=== PATIENT | female | born 1965 | race Caucasian/White ===

== ENCOUNTER → 2018-01-18 11:44 | Outpatient (CLI) | payer OTHER, SELFPAY ==
--- NOTE | 2018-01-18 | DI.MG.S_ITS ---
BILATERAL DIGITAL SCREENING MAMMOGRAM 3D/2D WITH CAD: 01/18/2018 CLINICAL: Routine screening. Family history of breast cancer. Comparison is made to exams dated: 12/28/2016 mammogram, 12/17/2014 mammogram, and 12/20/2015 mammogram - [facility]. The tissue of both breasts is extremely dense, which lowers the sensitivity of mammography. Current study was also evaluated with a Computer Aided Detection (CAD) system. No significant masses, calcifications, or other findings are seen in either breast. There has been no significant interval change. IMPRESSION: NEGATIVE There is no mammographic evidence of malignancy. A 1 year screening mammogram is recommended. This exam was interpreted at Station ID: [id number]. NOTE: For mammograms, a report in lay terms will be sent to the patient. Approximately 15% of breast malignancies will not be visualized mammographically. In the management of a palpable breast mass, a negative mammogram must not discourage biopsy of a clinically suspicious lesion. Electronically Signed By: Amira tucker/bao:01/18/2018 14:14:38 letter sent: Normal Exam ACR BI-RADS Category 1: Negative 3341F
== END ==
PROVIDERS: Family Provider Family Medicine; PCP Family Medicine; Visit Provider Family Medicine
DX: Z12.31 Encounter for screening mammogram for malignant neoplasm of breast (principal); Z80.3 Family history of malignant neoplasm of breast
CPT/HCPCS: 77063; 77067

== ENCOUNTER → 2018-03-18 08:36 | Outpatient (CLI) | payer OTHER, SELFPAY ==
[2018-03-18 09:23] LABS: Add Manual Diff / Slide Review NO; Basophils Percent Auto 0.5 % (0-2); Eosinophils Percent Auto 0.4 % (2-4); Hematocrit 40.1 % (36-46); Hemoglobin 13.5 g/dL (12.0-16.0); Lymphocytes Percent Auto 13.9 % (25-40); Mean Corpuscular HGB Conc 33.7 % (30-36); Mean Corpuscular Hemoglobin 32.8 PG (26-34); Mean Corpuscular Volume 97.4 fL (80-100); Monocytes Percent Auto 5.9 % (3-14); Neutrophils Absolute Auto 6300 /uL (3000-5900); Neutrophils Percent Auto 79.3 % (50-75); Platelet Count 235 X10^3/uL (150-400); Red Blood Cell Count 4.12 X10^6/uL (4.0-5.2); Red Cell Distribution Width 13.2 % (11.6-14.8); White Blood Cell Count 7.9 X10^3/uL (4.5-11.0)
[2018-03-18 09:35] LABS: Alanine Aminotransferase 26 IU/L (9-52); Albumin 4.5 g/dL (3.5-5.0); Albumin Globulin Ratio 1.7 (1.0-2.8); Alkaline Phosphatase 48 U/L (38-126); Aspartate Aminotransferase 21 IU/L (14-36); BUN Creatinine Ratio 26.7 (6-22); Bilirubin Total 0.7 mg/dL (0.2-1.3); Blood Urea Nitrogen 24 mg/dL (7-17); Calcium 9.4 mg/dL (8.4-10.2); Carbon Dioxide 28 mmol/L (22-32); Chloride 104 mmol/L (98-107); Cholesterol 204 mg/dL (140-199); Estimated Glomerular Filt Rate > 60.0 mL/min (>60); Globulin 2.7 g/dL (1.7-4.1); Glucose 101 mg/dL (70-100); HDL Cholesterol 66 mg/dL (40-60); HEMOLYSIS < 15 (0-50); LDL Cholesterol Calculated 128 mg/dL (<100); Potassium 4.8 mmol/L (3.4-5.1); Sodium 142 mmol/L (137-145); Total Protein 7.2 g/dL (6.3-8.2); Triglycerides 51 mg/dL (35-150)
[2018-03-18 09:51] LABS: Follicle Stimulating Hormone 5.07 mIU/mL
[2018-03-18 10:58] LABS: Thyroid Stimulating Hormone 2.08 uIU/mL (0.47-4.68)
== END ==
PROVIDERS: Specialist; PCP Family Medicine; Visit Provider Family Medicine
DX: N95.1 Menopausal and female climacteric states (principal); I10 Essential (primary) hypertension
CPT/HCPCS: 36415; 80053; 80061; 83001; 84443; 85025

== ENCOUNTER → 2018-04-12 11:45 | Outpatient (CLI) | payer OTHER, SELFPAY | PROVIDERS: Family Provider Family Medicine; PCP Family Medicine | DX: Z23 Encounter for immunization (principal) | CPT/HCPCS: 90471; 90686 ==

== ENCOUNTER → 2019-02-07 15:15 | Outpatient (CLI) | payer OTHER, SELFPAY ==
--- NOTE | 2019-02-07 | DI.MG.S_ITS ---
BILATERAL DIGITAL SCREENING MAMMOGRAM 3D/2D WITH CAD: 02/07/2019 CLINICAL: Routine screening. Family history of breast cancer. Comparison is made to exams dated: 01/18/2018 mammogram, 12/28/2016 mammogram, and 12/20/2015 mammogram - [facility]. The tissue of both breasts is extremely dense, which lowers the sensitivity of mammography. Current study was also evaluated with a Computer Aided Detection (CAD) system. No significant masses, calcifications, or other findings are seen in either breast. There has been no significant interval change. IMPRESSION: NEGATIVE There is no mammographic evidence of malignancy. A 1 year screening mammogram is recommended. This exam was interpreted at Station ID: [id number]. NOTE: For mammograms, a report in lay terms will be sent to the patient. Approximately 15% of breast malignancies will not be visualized mammographically. In the management of a palpable breast mass, a negative mammogram must not discourage biopsy of a clinically suspicious lesion. Electronically Signed By: Karis faith/bao:02/08/2019 07:56:38 letter sent: Normal Exam ACR BI-RADS Category 1: Negative 3341F
== END ==
PROVIDERS: PCP Family Medicine; Visit Provider Family Medicine
DX: Z12.31 Encounter for screening mammogram for malignant neoplasm of breast (principal); Z80.3 Family history of malignant neoplasm of breast
CPT/HCPCS: 77063; 77067

== ENCOUNTER → 2019-03-16 08:08 | Outpatient (CLI) | payer OTHER, SELFPAY ==
[2019-03-16 09:23] LABS: Add Manual Diff / Slide Review NO; Basophils Absolute Auto 0 /uL (0-100); Basophils Percent Auto 0.9 % (0-2); Eosinophils Absolute Auto 100 /uL (0-450); Eosinophils Percent Auto 1.5 % (2-4); Hematocrit 38.3 % (36-46); Hemoglobin 13.2 g/dL (12.0-16.0); Lymphocytes Absolute Auto 1200 /uL (1100-4500); Lymphocytes Percent Auto 24.4 % (25-40); Mean Corpuscular HGB Conc 34.4 % (30-36); Mean Corpuscular Hemoglobin 33.4 PG (26-34); Mean Corpuscular Volume 97.1 fL (80-100); Monocytes Absolute Auto 300 /uL (0-900); Monocytes Percent Auto 6.6 % (3-14); Neutrophils Absolute Auto 3300 /uL (1500-7000); Neutrophils Percent Auto 66.6 % (50-75); Platelet Count 225 X10^3/uL (150-400); Red Blood Cell Count 3.95 X10^6/uL (4.0-5.2); White Blood Cell Count 4.9 X10^3/uL (4.5-11.0)
[2019-03-16 09:53] LABS: Alanine Aminotransferase 26 IU/L (9-52); Albumin 4.2 g/dL (3.5-5.0); Albumin Globulin Ratio 1.6 (1.0-2.8); Alkaline Phosphatase 51 U/L (38-126); Aspartate Aminotransferase 31 IU/L (14-36); BUN Creatinine Ratio 22.5 (6-22); Bilirubin Total 0.4 mg/dL (0.2-1.3); Blood Urea Nitrogen 18 mg/dL (7-17); Calcium 9.3 mg/dL (8.4-10.2); Carbon Dioxide 28 mmol/L (22-32); Chloride 102 mmol/L (98-107); Cholesterol 188 mg/dL (140-199); Estimated Glomerular Filt Rate > 60.0 mL/min (>60); Globulin 2.7 g/dL (1.7-4.1); Glucose 104 mg/dL (70-100); HDL Cholesterol 64 mg/dL (40-60); HEMOLYSIS < 15 (0-50); LDL Cholesterol Calculated 117 mg/dL (<100); Potassium 4.9 mmol/L (3.4-5.1); Sodium 139 mmol/L (137-145); Total Protein 6.9 g/dL (6.3-8.2); Triglycerides 34 mg/dL (35-150)
[2019-03-16 10:16] LABS: TSH w/ Reflex to FT4 2.03 uIU/mL (0.47-4.68)
== END ==
PROVIDERS: PCP Family Medicine; Visit Provider Family Medicine
DX: I10 Essential (primary) hypertension (principal)
CPT/HCPCS: 36415; 80053; 80061; 82565; 84443; 84520; 85025

== ENCOUNTER → 2019-04-18 14:40 | Outpatient (CLI) | payer OTHER, SELFPAY | PROVIDERS: PCP Family Medicine | DX: Z23 Encounter for immunization (principal) | CPT/HCPCS: 90471; 90686 ==

== ENCOUNTER → 2020-02-05 09:37 | Outpatient (CLI) | payer OTHER, SELFPAY ==
--- NOTE | 2020-02-05 09:38 | DI.RAD.S_ITS ---
PROCEDURE: XR HAND LT MIN 3V INDICATIONS: 3rd digit ant finger calcified nodule at mcp joint TECHNIQUE: 3 views of the hand(s) acquired. COMPARISON: None. FINDINGS: Bones: No fractures or dislocations. Carpal bones are normally aligned. No suspicious bony lesions. Soft tissues: No suspicious soft tissue calcifications. IMPRESSION: The clinical history provided suggest possible prior outside imaging study but the current examination shows no abnormality. Please correlate [id number] targeted ultrasound may be warranted depending on the clinical status. Dictated by: Ky Schneider M.D. on 02/05/2020 at 10:29 Approved by: Ky Schneider M.D. on 02/05/2020 at 10:31
== END ==
PROVIDERS: PCP Family Medicine; Referring Provider Family Medicine; Visit Provider Family Medicine
DX: M79.645 Pain in left finger(s) (principal)
CPT/HCPCS: 73130

== ENCOUNTER → 2020-02-26 17:37 | Outpatient (CLI) | payer OTHER, SELFPAY ==
--- NOTE | 2020-02-26 | DI.MG.S_ITS ---
BILATERAL DIGITAL SCREENING MAMMOGRAM 3D/2D WITH CAD: 02/26/2020 CLINICAL: Routine screening. Family history of breast cancer. Comparison is made to exams dated: 02/07/2019 mammogram, 01/18/2018 mammogram, and 12/28/2016 mammogram - [facility]. The tissue of both breasts is extremely dense, which lowers the sensitivity of mammography. Current study was also evaluated with a Computer Aided Detection (CAD) system. No significant masses, calcifications, or other findings are seen in either breast. There has been no significant interval change. IMPRESSION: NEGATIVE There is no mammographic evidence of malignancy. A 1 year screening mammogram is recommended. This exam was interpreted at Station ID: [id number]. NOTE: For mammograms, a report in lay terms will be sent to the patient. Approximately 15% of breast malignancies will not be visualized mammographically. In the management of a palpable breast mass, a negative mammogram must not discourage biopsy of a clinically suspicious lesion. Electronically Signed By: Homar coffey/bao:02/27/2020 08:28:11 letter sent: Normal Exam ACR BI-RADS Category 1: Negative 3341F
== END ==
PROVIDERS: PCP Family Medicine; Referring Provider Family Medicine; Visit Provider Family Medicine
DX: Z12.31 Encounter for screening mammogram for malignant neoplasm of breast (principal); Z80.3 Family history of malignant neoplasm of breast
CPT/HCPCS: 77063; 77067

== ENCOUNTER 2020-03-03 15:16 | Emergency (ER) | payer OTHER, SELFPAY ==
[2020-03-03 15:20] VITALS: BP 172/81; PULSE 62; RESP 14; TEMP 36.7; O2SAT 98
--- NOTE | 2020-03-03 15:29 | DI.RAD.S_ITS ---
PROCEDURE: XR FINGER LT MIN 2V INDICATIONS: laceration to finger tip. ? bone involvement TECHNIQUE: AP hand, 2 views of the left 4th finger(s) acquired. COMPARISON: None. FINDINGS: Bones: No fractures or dislocations. No suspicious bony lesions. Soft tissues: No suspicious soft tissue calcifications. IMPRESSION: No bony abnormality or unexpected radiopaque foreign body after soft tissue laceration Dictated by: Amira Ahumada M.D. on 03/03/2020 at 14:59 Approved by: Amira Ahumada M.D. on 03/03/2020 at 14:59
[2020-03-03] MEDS: BACITRACIN OINT 0.9 GM PCKT 1 APPLIC TOP (16:19)
[2020-03-03] MEDS: LIDO 1%/SOD BICARB 8.4% (10ML) 10 ML SYRINGE INJ (16:19)
--- NOTE | 2020-03-03 16:21 | ED_ITS ---
HPI - Skin/Abscess/Foreign Bdy <GLORIA Gray - Last Filed: 03/03/20 16:49> General Chief complaint: Skin/Abscess/Foreign Body Stated complaint: left hand ring finger wound Time Seen by Provider: 03/03/20 15:32 Source: patient Mode of arrival: Ambulatory Limitations: no limitations History of Present Illness HPI narrative: This is a 54-year-old female who has updated tetanus immunization presents to ED with laceration on non dominant left hand ring finger on distal Phalege in ulnar aspect from a garden shear that happens 1 hour before coming into ED. patient reports intact sensation, mobility distally to the injury site. Related Data Home Medications Medication Instructions Recorded Confirmed cetirizine 10 mg tablet 10 mg PO DAILY 06/20/18 01/25/20 levonorgestrel 20 mcg/24 hours (5 INTRAUTERINE each 01/24/20 01/24/20 yrs) 52 mg intrauterine device Previous Rx's Medication Instructions Recorded telmisartan 40 mg tablet 40 mg PO QDAY #90 tab 02/08/20 Allergies Allergy/AdvReac Type Severity Reaction Status Date / Time No Known Drug Allergies Allergy Verified 03/03/20 15:28 Review of Systems <GLORIA Gray - Last Filed: 03/03/20 16:49> Review of Systems Narrative: General: Denies fever, chills, fatigue, malaise, sweats. Respiratory: Denies dyspnea, cough, wheezing, hemoptysis, sputum. Cardiovascular: Denies chest pain, palpitations, orthopnea, edema Musculoskeletal: Denies weakness, joint pain or bony pain. Skin: See HPI Patient History <GLORIA Gray - Last Filed: 03/03/20 16:49> Medical History Foot pain (Chronic ~2011) Hypertension (Chronic ~1992) Osteoarthritis of toe joint (Acute) Vaginal delivery (Resolved) Family History Father Age: 78 Hypertension Grandmother Heart disease Grandfather Heart disease Grandmother Monique Gehrig's disease Social History marital status: Smoking Status: Never smoker alcohol intake: current (1-3 A WEEK) substance use type: does not use Smoking Status: Never smoker Substance Use Type: does not use Exam <GLORIA Gray - Last Filed: 03/03/20 16:49> Narrative Exam Narrative: General appearance: well developed, well nourished, in no acute distress. Head: normocephalic, atraumatic, no scalp lesions, non-tender. ENT: Hearing grossly intact. Airway patent. Neck/Thyroid: neck supple, full range of motion, no visible masses or meningeal signs. No JVD, non-tender without lymphadenopathy. Skin: 1.5 cm laceration to distal finger on ulnar aspect of left ring finger. Heart: no clubbing, no cyanosis, no edema. Lungs: Breathing even and unlabored. No stridor. No accessory muscles used. Able to speak in full sentences. Chest: normal shape and expansion. Abdomen: non-obese, non-distended. Neurologic: alert and oriented. Cognitive exam, ORDER TAKER and PNS grossly intact on informal exam. Psych: good eye contact, normal affect. Initial Vital Signs Initial Vital Signs: Vital Signs Temperature 98.1 F 03/03/20 15:20 Pulse Rate 62 03/03/20 15:20 Respiratory Rate 14 03/03/20 15:20 Blood Pressure 172/81 H 03/03/20 15:20 Pulse Oximetry 98 03/03/20 15:20 Extrem Left upper extremity: hand Details: abnormal to inspection, neuromotor exam normal, neurosensory exam normal, tendon exam normal, tenderness, vascular exam Details: radial pulse present and normal capillary refill, normal ROM of fingers and laceration (Ulna aspect of 4th finger) <Kyara Gonzalez DO - Last Filed: 03/03/20 17:49> Initial Vital Signs Initial Vital Signs: Vital Signs Temperature 98.1 F 03/03/20 15:20 Pulse Rate 62 03/03/20 15:20 Respiratory Rate 14 03/03/20 15:20 Blood Pressure 172/81 H 03/03/20 15:20 Pulse Oximetry 98 03/03/20 15:20 Procedures <GLORIA Gray - Last Filed: 03/03/20 16:49> Laceration Repair Laceration 1: Site: hand (ring finger) Side (If applicable): left Size (cm): 1.5 Description: linear Depth: simple, single layer Local Anesthetic: lidocaine 1% and with bicarb Amount of anesthesia used (mL): 1.5 Pre-repair: wound explored and irrigated extensively Skin layer closed with: nylon Size (cm): 4-0 Number of sutures: 3 Technique: simple, interrupted Scores <[facility] - Last Filed: 03/03/20 16:49> GCS [place] coma scale eye opening: Spontaneous [place] coma scale verbal response: Orientated [place] coma scale motor response: Obey commands [place] coma scale total score: 15 Course <[facility] - Last Filed: 03/03/20 16:49> Orders Ordered: ED Orders 03/03/20 15:29 XR finger LT min 2V Stat Discontinued Medications Bacitracin (Bacitracin) 1 applic TOP NOW ONE Stop: 03/03/20 15:47 Last Admin: 03/03/20 16:19 Dose: 1 applic Documented by: TSERING Lidocaine/Sodium Bicarbonate (Buffered Lidocaine 10 Ml Syr) 10 ml INJ NOW ONE Stop: 03/03/20 15:47 Last Admin: 03/03/20 16:19 Dose: 10 ml Documented by: TSERING Vital Signs Vital signs: Vital Signs - 8 hr 03/03/20 15:20 03/03/20 16:33 Temperature 98.1 F Pulse Rate 62 70 Respiratory Rate 14 14 Blood Pressure 172/81 H 132/83 Pulse Oximetry 98 99 <Kyara Gonzalez DO - Last Filed: 03/03/20 17:49> Orders Ordered: ED Orders 03/03/20 15:29 XR finger LT min 2V Stat Discontinued Medications Bacitracin (Bacitracin) 1 applic TOP NOW ONE Stop: 03/03/20 15:47 Last Admin: 03/03/20 16:19 Dose: 1 applic Documented by: TSERING Lidocaine/Sodium Bicarbonate (Buffered Lidocaine 10 Ml Syr) 10 ml INJ NOW ONE Stop: 03/03/20 15:47 Last Admin: 03/03/20 16:19 Dose: 10 ml Documented by: TSERING Vital Signs Vital signs: Vital Signs - 8 hr 03/03/20 15:20 03/03/20 16:33 Temperature 98.1 F Pulse Rate 62 70 Respiratory Rate 14 14 Blood Pressure 172/81 H 132/83 Pulse Oximetry 98 99 MDM - Skin/Abscess/Foreign Bdy <Roberto LINDA GalloP - Last Filed: 03/03/20 16:49> Differential Diagnosis Differential diagnosis: Likely other (Finger laceration. Foreign body. Finger fracture) Medical Records Attestation: I reviewed the patient's medical records. Imaging Data XR- Finger LT: Radiologist's Impression: [address] [address] XRay Report Signed Patient: Amie Barron GMR#: [id number] : 1965Acct:[id number] Age/Sex: 54 / FDate of Service: 03/03/20 Loc: ED Accession Number: [id number] Procedure: XR finger LT min 2V Ordering Provider: Kyara Gonzalez D.O. PROCEDURE: XR FINGER LT MIN 2V INDICATIONS: laceration to finger tip. ? bone involvement TECHNIQUE: AP hand, 2 views of the left 4th finger(s) acquired. COMPARISON: None. FINDINGS: Bones: No fractures or dislocations. No suspicious bony lesions. Soft tissues: No suspicious soft tissue calcifications. IMPRESSION: No bony abnormality or unexpected radiopaque foreign body after soft tissue laceration Dictated by: Amira Ahumada M.D. on 03/03/2020 at 14:59 Approved by: Amira Ahumada M.D. on 03/03/2020 at 14:59 [facility] Narrative Medical decision making narrative: This is 54 year female who presents to ED with left ring finger laceration in ulna aspect of distal phalanges by a garden shear before coming into ED. patient reports intact sensation and distal pulses. Has intact mobility on affected finger against resistance. X-ray test does not show fractures, foreign bodies, or dislocations. Laceration has been repaired with 3 simple interrupted sutures which patient tolerated well. Please see procedure note. We discussed home wound care, follow-up for wound recheck and suture removal with the patient and she verbalized understanding and in agreement with the treatment plan. Discharge Plan Departure Patient Disposition: Home Clinical Impression: Finger laceration Qualifiers: Encounter type: initial encounter Finger: ring finger Damage to nail status: without damage Foreign body presence: without foreign body Laterality: left Qualified Code(s): S61.215A - Laceration without foreign body of left ring finger without damage to nail, initial encounter Discharge Date/Time: 03/03/20 16:36 Instructions: DI for Laceration Repair -- Finger Activity Restrictions/Additional Instructions: You have been diagnosed with [left ring finger laceration repaired with 3 sutures. X-ray test does not show fractures, foreign bodies, or dislocations.]. What to do: *Take your medications as directed. You can take [id number] Tylenol and or Motrin as needed for discomfort. Please do not get your wound soaked in the water until suture removal. Keep your dressing intact for next 24 hrs. After then, you could remove your dressing, wash with soap and water. Pat dry with clean paper towel and dress it with antibiotic ointment. You can change dressing as needed and daily. Please monitor for signs and symptoms for infection such as increasing redness, swelling, warmth, pain, fever, purulent discharge. If this occurs, please return to ED or follow up with your primary care physician since your wound may be gotten infected. Please follow up with your primary care provider in 2-3 days for recheck wound. Your suture should be removed [ 7-10 ] days. This can be done by your primary provider, walk-in clinic or here in ED. Please keep your wound clean, dry and intact all times. When your finger heals, please continue to enjoy gardening! Prescriptions: No Action Mirena 20 mcg/24 hours (5 yrs) 52 mg intrauterine device Intrauterine RF: 0 telmisartan [Micardis] 40 mg tablet 40 mg PO QDAY Qty: 90 RF: 3 cetirizine [Aller-Frankie] 10 mg tablet 10 mg PO DAILY RF: 0 Referrals: Kennedy Hair MD [Primary Care Provider] - <Kyara Gonzalez DO - Last Filed: 03/03/20 17:49> Cosign ED Attending Cosignature Attestation: I was immediately available in the department for consultation. Documentation has been reviewed. I agree with assessment and plan.
[2020-03-03 16:33] VITALS: BP 132/83; PULSE 70; RESP 14; O2SAT 99
== END 2020-03-03 16:36 | disposition home or self-care (01) ==
PROVIDERS: Emergency Provider Nurse Practitioner Family; PCP Family Medicine
DX: S61.215A Laceration without foreign body of left ring finger without damage to nail, initial encounter (principal); W45.8XXA Other foreign body or object entering through skin, initial encounter
CPT/HCPCS: 73140; 99283

== ENCOUNTER → 2020-04-12 | Outpatient (CLI) | payer OTHER, SELFPAY | PROVIDERS: PCP Family Medicine; Referring Provider Internal Medicine; Visit Provider Internal Medicine | DX: Z23 Encounter for immunization (principal) | CPT/HCPCS: 90471; 90686 ==

== ENCOUNTER → 2020-07-18 11:01 | Outpatient (CLI) | payer OTHER, SELFPAY ==
[2020-07-18] MEDS: COVID-19 VACC(MODERNA-1)/PF 100 MCG/0.5 ML VIAL IM (11:03)
== END ==
PROVIDERS: PCP Family Medicine; Visit Provider Internal Medicine
DX: Z23 Encounter for immunization (principal)
CPT/HCPCS: 0011A; 91301

== ENCOUNTER → 2020-08-14 10:53 | Outpatient (CLI) | payer OTHER, SELFPAY ==
[2020-08-14] MEDS: COVID-19 VACC #2, MRNA(MOD) 100 MCG/0.5 ML VIAL IM (10:58)
== END ==
PROVIDERS: PCP Family Medicine; Visit Provider Internal Medicine
DX: Z23 Encounter for immunization (principal)
CPT/HCPCS: 0012A; 91301

== ENCOUNTER → 2021-01-07 08:02 | Outpatient (CLI) | payer OTHER, SELFPAY ==
[2021-01-07 08:32] LABS: Add Manual Diff / Slide Review NO; Basophils Absolute Auto 0 /uL (0-100); Basophils Percent Auto 0.8 % (0-2); Eosinophils Absolute Auto 100 /uL (0-450); Eosinophils Percent Auto 2.9 % (2-4); Hematocrit 37.4 % (36-46); Hemoglobin 12.5 g/dL (12.0-16.0); Lymphocytes Absolute Auto 1400 /uL (1100-4500); Lymphocytes Percent Auto 35.4 % (25-40); Mean Corpuscular HGB Conc 33.5 % (30-36); Mean Corpuscular Hemoglobin 32.3 PG (26-34); Mean Corpuscular Volume 96.4 fL (80-100); Monocytes Absolute Auto 300 /uL (0-900); Monocytes Percent Auto 6.8 % (3-14); Neutrophils Absolute Auto 2100 /uL (1500-7000); Neutrophils Percent Auto 54.1 % (50-75); Platelet Count 232 X10^3/uL (150-400); Red Blood Cell Count 3.88 X10^6/uL (4.0-5.2); Red Cell Distribution Width 12.9 % (11.6-14.8); White Blood Cell Count 3.9 X10^3/uL (4.5-11.0)
[2021-01-07 08:44] LABS: Alanine Aminotransferase 38 IU/L (<35); Albumin 3.9 g/dL (3.5-5.0); Albumin Globulin Ratio 1.4 (1.0-2.8); Alkaline Phosphatase 58 U/L (38-126); Aspartate Aminotransferase 45 IU/L (14-36); BUN Creatinine Ratio 23.8 (6-22); Bilirubin Total 0.4 mg/dL (0.2-1.3); Blood Urea Nitrogen 20 mg/dL (7-17); Calcium 9.4 mg/dL (8.4-10.2); Carbon Dioxide 27 mmol/L (22-32); Chloride 108 mmol/L (98-107); Cholesterol 212 mg/dL (140-199); Estimated Glomerular Filt Rate > 60.0 mL/min (>60); Globulin 2.7 g/dL (1.7-4.1); Glucose 115 mg/dL (70-100); HDL Cholesterol 63 mg/dL (40-60); HEMOLYSIS < 15 (0-50); LDL Cholesterol Calculated 139 mg/dL (<100); Potassium 4.6 mmol/L (3.4-5.1); Sodium 138 mmol/L (137-145); Total Protein 6.6 g/dL (6.3-8.2); Triglycerides 51 mg/dL (35-150)
[2021-01-07 09:22] LABS: TSH w/ Reflex to FT4 2.18 uIU/mL (0.47-4.68)
== END ==
PROVIDERS: PCP Family Medicine; Referring Provider Family Medicine; Visit Provider Family Medicine
DX: I10 Essential (primary) hypertension (principal)
CPT/HCPCS: 36415; 80053; 80061; 84443; 85025

== ENCOUNTER → 2021-04-12 09:10 | Outpatient (CLI) | payer OTHER, SELFPAY ==
--- NOTE | 2021-04-12 | DI.MG.S_ITS ---
BILATERAL DIGITAL SCREENING MAMMOGRAM 3D/2D WITH CAD: 04/12/2021 CLINICAL: Routine screening. Family history of breast cancer. Comparison is made to exams dated: 02/26/2020 mammogram, 01/18/2018 mammogram, and 02/07/2019 mammogram - [facility]. The tissue of both breasts is heterogeneously dense. This may lower the sensitivity of mammography. Current study was also evaluated with a Computer Aided Detection (CAD) system. No significant masses, calcifications, or other findings are seen in either breast. There has been no significant interval change. IMPRESSION: NEGATIVE There is no mammographic evidence of malignancy. A 1 year screening mammogram is recommended. This exam was interpreted at Station ID: [id number]. NOTE: For mammograms, a report in lay terms will be sent to the patient. Approximately 15% of breast malignancies will not be visualized mammographically. In the management of a palpable breast mass, a negative mammogram must not discourage biopsy of a clinically suspicious lesion. Electronically Signed By: Reynaldo de los santos/bao:04/14/2021 07:41:51 letter sent: Normal Exam ACR BI-RADS Category 1: Negative 3341F
[2021-04-12 10:09] LABS: Alanine Aminotransferase 27 IU/L (<35); Albumin 4.4 g/dL (3.5-5.0); Albumin Globulin Ratio 1.8 (1.0-2.8); Alkaline Phosphatase 62 U/L (38-126); Aspartate Aminotransferase 25 IU/L (14-36); Bilirubin Total 0.5 mg/dL (0.2-1.3); Bilirubin Unconjugated 0.4 mg/dL (0.0-1.1); Globulin 2.4 g/dL (1.7-4.1); HEMOLYSIS < 15 (0-50); Total Protein 6.8 g/dL (6.3-8.2)
== END ==
PROVIDERS: PCP Family Medicine; Referring Provider Family Medicine; Visit Provider Family Medicine
DX: Z12.31 Encounter for screening mammogram for malignant neoplasm of breast (principal); R74.01 Elevation of levels of liver transaminase levels; Z80.3 Family history of malignant neoplasm of breast
CPT/HCPCS: 36415; 77063; 77067; 80076

== ENCOUNTER → 2021-05-08 12:24 | Outpatient (CLI) | payer OTHER, SELFPAY | PROVIDERS: PCP Family Medicine; Referring Provider Internal Medicine; Visit Provider Internal Medicine | DX: Z23 Encounter for immunization (principal) | CPT/HCPCS: 90471; 90686 ==

== ENCOUNTER → 2021-05-23 08:04 | Outpatient (CLI) | payer OTHER, SELFPAY ==
[2021-05-23] MEDS: COVID-19 VACC #3, MRNA(MOD) 50 MCG/0.25 ML VIAL IM (08:14)
== END ==
PROVIDERS: PCP Family Medicine; Visit Provider Internal Medicine
DX: Z23 Encounter for immunization (principal)
CPT/HCPCS: 0013A; 91301

== ENCOUNTER → 2022-04-16 07:47 | Outpatient (CLI) | payer OTHER, SELFPAY ==
[2022-04-16 09:29] LABS: Add Manual Diff / Slide Review NO; Basophils Absolute Auto 100 /uL (0-100); Basophils Percent Auto 0.9 % (0-2); Eosinophils Absolute Auto 100 /uL (0-450); Eosinophils Percent Auto 1.4 % (2-4); Hematocrit 39.7 % (36-46); Hemoglobin 13.4 g/dL (12.0-16.0); Lymphocytes Absolute Auto 1500 /uL (1100-4500); Lymphocytes Percent Auto 26.4 % (25-40); Mean Corpuscular HGB Conc 33.7 % (30-36); Mean Corpuscular Hemoglobin 32.1 PG (26-34); Mean Corpuscular Volume 95.4 fL (80-100); Monocytes Absolute Auto 400 /uL (0-900); Monocytes Percent Auto 6.6 % (3-14); Neutrophils Absolute Auto 3800 /uL (1500-7000); Neutrophils Percent Auto 64.7 % (50-75); Platelet Count 260 X10^3/uL (150-400); Red Blood Cell Count 4.16 X10^6/uL (4.0-5.2); Red Cell Distribution Width 12.8 % (11.6-14.8); White Blood Cell Count 5.9 X10^3/uL (4.5-11.0)
[2022-04-16 09:50] LABS: Alanine Aminotransferase 19 IU/L (<35); Albumin 4.4 g/dL (3.5-5.0); Albumin Globulin Ratio 1.6 (1.0-2.8); Alkaline Phosphatase 67 U/L (38-126); Aspartate Aminotransferase 21 IU/L (14-36); BUN Creatinine Ratio 23.6 (6-22); Bilirubin Total 0.5 mg/dL (0.2-1.3); Blood Urea Nitrogen 21 mg/dL (7-17); Calcium 9.2 mg/dL (8.4-10.2); Carbon Dioxide 28 mmol/L (22-32); Chloride 100 mmol/L (98-107); Cholesterol 217 mg/dL (140-199); Estimated Glomerular Filt Rate > 60 mL/min (>60); Globulin 2.7 g/dL (1.7-4.1); Glucose 108 mg/dL (70-100); HDL Cholesterol 67 mg/dL (40-60); HEMOLYSIS < 15 (0-50); LDL Cholesterol Calculated 140 mg/dL (<100); Potassium 4.6 mmol/L (3.4-5.1); Sodium 137 mmol/L (137-145); Total Protein 7.1 g/dL (6.3-8.2); Triglycerides 48 mg/dL (35-150)
[2022-04-16 10:03] LABS: Follicle Stimulating Hormone 74.4 mIU/mL; Luteinizing Hormone 33.5 mIU/mL
[2022-04-16 10:21] LABS: TSH w/ Reflex to FT4 2.09 uIU/mL (0.47-4.68)
== END ==
PROVIDERS: PCP Family Medicine; Referring Provider Family Medicine; Visit Provider Family Medicine
DX: I10 Essential (primary) hypertension (principal); N95.1 Menopausal and female climacteric states
CPT/HCPCS: 36415; 80053; 80061; 83001; 83002; 84443; 85025

== ENCOUNTER → 2022-04-17 12:14 | Outpatient (CLI) | payer OTHER, SELFPAY | PROVIDERS: PCP Family Medicine; Referring Provider Internal Medicine; Visit Provider Internal Medicine | DX: Z23 Encounter for immunization (principal) | CPT/HCPCS: 90471; 90686 ==

== ENCOUNTER → 2022-05-05 15:05 | Outpatient (CLI) | payer OTHER, SELFPAY ==
--- NOTE | 2022-05-05 | DI.MG.S_ITS ---
BILATERAL DIGITAL SCREENING MAMMOGRAM 3D/2D WITH CAD: 05/05/2022 CLINICAL: Routine screening. Family history of breast cancer. Comparison is made to exams dated: 04/12/2021 mammogram, 02/26/2020 mammogram, and 02/07/2019 mammogram - [facility]. Both breasts are heterogeneously dense, which may obscure small masses (category c / 51-75% glandular tissue). Current study was also evaluated with a Computer Aided Detection (CAD) system. No significant masses, calcifications, or other findings are seen in either breast. There has been no significant interval change. IMPRESSION: NEGATIVE There is no mammographic evidence of malignancy. A 1 year screening mammogram is recommended. This exam was interpreted at Station ID: [id number]. NOTE: For mammograms, a report in lay terms will be sent to the patient. Approximately 15% of breast malignancies will not be visualized mammographically. In the management of a palpable breast mass, a negative mammogram must not discourage biopsy of a clinically suspicious lesion. Electronically Signed By: Amira tucker/bao:05/06/2022 12:02:27 letter sent: Normal Exam ACR BI-RADS Category 1: Negative 3341F
== END ==
PROVIDERS: PCP Family Medicine; Referring Provider Family Medicine; Visit Provider Family Medicine
DX: Z12.31 Encounter for screening mammogram for malignant neoplasm of breast (principal); Z80.3 Family history of malignant neoplasm of breast
CPT/HCPCS: 77063; 77067

== ENCOUNTER 2023-02-08 02:20 | Inpatient (IN) | payer OTHER, SELFPAY ==
[2023-02-08 02:34] VITALS: BP 146/81; PULSE 72; RESP 16; TEMP 36.4; O2SAT 99; BMI 23.9
--- NOTE | 2023-02-08 03:52 | DI.RAD.S_ITS ---
PROCEDURE: XR FINGER LT MIN 2V INDICATIONS: cat bite 4th finger TECHNIQUE: AP hand, 2 views of the 4th finger(s) acquired. COMPARISON: [facility], , XR FINGER LT MIN 2V, 03/03/2020, 15:37. FINDINGS: Bones: No fractures or dislocations. No suspicious bony lesions. Soft tissues: No suspicious soft tissue calcifications. Soft tissue swelling, PIP joint of left 4th finger. No radiopaque foreign body. No soft tissue gas. IMPRESSION: No acute bony abnormality. Soft tissue swelling overlying the PIP joint. Comment: Final report is concordant with preliminary interpretation provided by [facility]. Dictated by: Francesco Myers M.D. on 02/08/2023 at 8:20 Approved by: Francesco Myers M.D. on 02/08/2023 at 8:21
--- NOTE | 2023-02-08 04:03 | ED_ITS ---
HPI - Animal Bite General Chief Complaint: Animal Bite Stated Complaint: was bit by cat yesterday and getting worse Time Seen by Provider: 02/08/23 03:42 Source: patient Mode of arrival: Family Vehicle Limitations: no limitations History of Present Illness HPI narrative: This is a 57-year-old female with history of hypertension, patient presents with complaint of cat bite to her 4th finger on her left hand yesterday February 07 at 9:00 a.m. by her cat. She states her CT sleeping she went to pet them the cat was startled and bit her finger there is 4 puncture [place] she states it was quite deep. Patient states she went to the walk-in clinic was prescribed Augmentin and has taken 2 doses but woke up this morning and noted that swelling has continually progressed quite a bit and pain is now extending down the palm as well as the redness. She started to have little bit of pus draining from the puncture wounds. Patient states no fevers. She denies chest pain, shortness of breath, no nausea or vomiting no other GI or urinary symptoms. She states she can feel end of her finger but it does feel decreased sensation. She can move it but it is painful. Patient states tetanus is up-to-date in the last 2 or 3 years. Denies any other major surgeries. No known drug allergies. No tobacco, alcohol or illicit. Related Data Home Medications Medication Instructions Recorded Confirmed cetirizine 10 mg tablet (Aller-Frankie) 10 mg PO DAILY 06/20/18 02/08/23 Previous Rx's Medication Instructions Recorded telmisartan 40 See Rx Instructions .Route 01/05/23 mg-hydrochlorothiazide 12.5 mg .COMPLEX #90 tabs tablet amoxicillin 875 mg-potassium 1 tab PO BID #20 tabs 02/07/23 clavulanate 125 mg tablet Allergies Allergy/AdvReac Type Severity Reaction Status Date / Time No Known Drug Allergies Allergy Verified 02/07/23 10:24 Review of Systems Review of Systems ROS Unobtainable: All systems reviewed & are unremarkable except as noted in HPI and below Patient History Medical History Foot pain (~2011) Hypertension (~1992) Osteoarthritis of toe joint Perimenopause (12/31/15) Vaginal delivery Family History Father Age: 81 Hypertension Grandmother Heart disease Grandfather Heart disease Grandmother Monique Gehrig's disease Social History marital status: household members: spouse Smoking Status: Never smoker alcohol intake: current substance use type: does not use Smoking Status: Never smoker Substance Use Type: does not use Exam Narrative Exam Narrative: GENERAL: Alert and oriented x three, female in mild distress. HEENT: Head normocephalic, atraumatic, EOMI, pupils reactive, face symmetric, moist mucous membranes NECK: Supple, full range of motion CARDIOVASCULAR: Regular rate and rhythm without murmurs, rubs or gallops. RESPIRATORY: Breath sounds equal bilaterally, no wheezes rales or rhonchi. ABDOMEN: Soft, nontender. Normoactive bowel sounds all 4 quadrants. No guarding or rebound, rigidity, no mass EXTREMITIES: Normal range of motion several of the 4th digit, patient Holter finger flexed, she can straighten it but is uncomfortable. She has swelling fusiform of the finger with 4 puncture wounds 1 of them has some purulent drainage. Patient does have tenderness along the length of the finger and into the palm. She has redness of the entire finger and extending down words. There is a little bit of purplish discoloration of the distal end, she has sensation to light touch but states it does feel different than the rest of the finger. 2+ radial pulse. No clubbing. Neurovascularly intact. NEUROLOGICAL: Cranial nerves II through XII grossly intact. Moving all extremities SKIN: Warm, dry, no petechiae, no rashes or lesions otherwise noted. Initial Vital Signs Initial Vital Signs: Vital Signs Temperature 97.6 F 02/08/23 02:34 Pulse Rate 72 02/08/23 02:34 Respiratory Rate 16 02/08/23 02:34 Blood Pressure 146/81 H 02/08/23 02:34 Pulse Oximetry 99 02/08/23 02:34 Oxygen Delivery Method Room Air 02/08/23 02:34 Course Orders Ordered: ED Orders 02/08/23 03:52 XR finger LT min 2V Stat 02/08/23 04:10 Complete Blood Count AUTO DIFF Stat Comprehensive Metabolic Panel Stat Lactate (Lactic Acid) Stat Procalcitonin Stat 02/08/23 04:18 Blood Culture Stat Acetaminophen (Acetaminophen 325 Mg Tablet) 650 mg PO Q6H PRN PRN Reason: Fever/Mild Pain (1-3) Enoxaparin Sodium (Enoxaparin 40 Mg/0.4 Ml Syringe) 40 mg SUBCUT DAILY [facility] Sodium Chloride (Normal Saline 0.9%) 1,000 mls @ 150 mls/hr IV CONT ROLANDA Last Admin: 02/08/23 04:32 Dose: 150 mls/hr Documented By: BECKY Ampicillin Sodium/Sulbactam (Sodium 3 gm/ Sodium Chloride) 100 mls @ 200 mls/hr IV Q6H [facility] Ibuprofen (Ibuprofen 600 Mg Tablet) 600 mg PO Q6H PRN PRN Reason: Fever/Mild Pain (1-3) Naloxone HCl (Naloxone 0.4 Mg/Ml Vial) 0.2 mg IV Q2MIN PRN PRN Reason: Opiate Reversal Discontinued Medications Ampicillin Sodium/Sulbactam (Sodium 3 gm/ Sodium Chloride) 100 mls @ 200 mls/hr IV NOW ONE Stop: 02/08/23 03:53 Last Infusion: 02/08/23 05:05 Dose: 0 mls/hr Documented By: Admin: 02/08/23 04:33 Dose: 200 mls/hr Documented By: BECKY Ampicillin Sodium/Sulbactam (Sodium 2 gm/ Sodium Chloride) 100 mls @ 200 mls/hr IV Q6H [facility] Vital Signs Vital signs: Vital Signs - 8 hr 02/08/23 02:34 Temperature 97.6 F Pulse Rate 72 Respiratory Rate 16 Blood Pressure 146/81 H Pulse Oximetry 99 Oxygen Delivery Method Room Air MDM - Animal Bite Lab Data 02/08/23 04:10 02/08/23 04:10 Labs: Lab Results 02/08/23 02/08/23 02/08/23 Range/Units 04:10 04:10 04:10 WBC 7.2 (4.5-11.0) X10^3/uL RBC 4.06 (4.0-5.2) X10^6/uL Hgb 13.0 (12.0-16.0) g/dL Hct 38.4 (36-46) % MCV 94.6 (80-100) fL MCH 32.1 (26-34) PG MCHC 33.9 (30-36) % RDW 13.2 (11.6-14.8) % Plt Count 239 (150-400) X10^3/uL Neut % (Auto) 65.1 (50-75) % Lymph % (Auto) 24.0 L (25-40) % [place] % (Auto) 8.2 (3-14) % Eos % (Auto) 2.0 (2-4) % Baso % (Auto) 0.7 (0-2) % Neut # (Auto) 4700 (3187-3505) /uL Lymph # (Auto) 1700 (1362-4643) /uL [place] # (Auto) 600 (0-900) /uL Eos # (Auto) 100 (0-450) /uL Baso # (Auto) 0 (0-100) /uL Sodium 135 L (137-145) mmol/L Potassium 3.9 (3.4-5.1) mmol/L Chloride 101 (98-107) mmol/L Carbon Dioxide 28 (22-32) mmol/L BUN 27 H (7-17) mg/dL Creatinine 0.79 (0.52-1.04) mg/dL Estimated GFR > 60 (>60) mL/min BUN/Creatinine Ratio 34.2 H (6-22) Glucose 107 H (70-100) mg/dL Lactate 0.7 (0.7-2.1) mmol/L Calcium 8.9 (8.4-10.2) mg/dL Total Bilirubin 0.6 (0.2-1.3) mg/dL AST 36 (14-36) IU/L ALT 38 H (<35) IU/L Alkaline Phosphatase 78 (38-126) U/L Total Protein 7.2 (6.3-8.2) g/dL Albumin 4.2 (3.5-5.0) g/dL Globulin 3.0 (1.7-4.1) g/dL Albumin/Globulin Ratio 1.4 (1.0-2.8) Procalcitonin 0.05 (<0.5) ng/mL Imaging Data Extremity x-ray #1: My Impression: no gas, no FB, no other acute process noted. MDM Narrative Medical decision making narrative: This is a 57-year-old female history of hypertension who had a cat bite in the last 24 hours that is rapidly progressing with signs of infection she is had 2 doses of oral Augmentin and is continuing to have increasing swelling redness with pain extending down through the palm over the area of the tendon. She is some fusiform swelling, she can not straighten her finger but is being held in flexion and appears to be developing an early flexor tenosynovitis. Tetanus was updated in the last 5 years according to patient. She was started on Unasyn IV, x-ray does not show any gas or foreign body. Patient is NPO and maintenance fluids started. Spoke with Dr. Costa for orthopedic surgery: Accepts for admission. We will see patient this morning may take to the OR this morning. NPO status is 8pm 02/07/23. Discharge Plan Departure Patient Disposition: Admitted as Observation Clinical Impression: Suppurative tenosynovitis of flexor tendon of left hand Admit Date/Time: 02/08/23 05:23 Admit Provider: Trung Costa
[2023-02-08 04:30] LABS: Add Manual Diff / Slide Review NO; Basophils Absolute Auto 0 /uL (0-100); Basophils Percent Auto 0.7 % (0-2); Eosinophils Absolute Auto 100 /uL (0-450); Hematocrit 38.4 % (36-46); Lymphocytes Absolute Auto 1700 /uL (1100-4500); Mean Corpuscular HGB Conc 33.9 % (30-36); Mean Corpuscular Hemoglobin 32.1 PG (26-34); Mean Corpuscular Volume 94.6 fL (80-100); Monocytes Absolute Auto 600 /uL (0-900); Monocytes Percent Auto 8.2 % (3-14); Neutrophils Absolute Auto 4700 /uL (1500-7000); Neutrophils Percent Auto 65.1 % (50-75); Platelet Count 239 X10^3/uL (150-400); Red Blood Cell Count 4.06 X10^6/uL (4.0-5.2); Red Cell Distribution Width 13.2 % (11.6-14.8); White Blood Cell Count 7.2 X10^3/uL (4.5-11.0)
[2023-02-08] MEDS: SODIUM CHLORIDE 0.9% 1,000 ML 150 ML IV (04:32)
[2023-02-08] MEDS: AMPICILLIN/SULBACTAM 3 GM 3 GM in SODIUM CHLORIDE 0.9% 100 ML IV ×4 (04:33→22:52)
[2023-02-08 04:36] LABS: Lactate (Lactic Acid) 0.7 mmol/L (0.7-2.1)
[2023-02-08 04:37] LABS: Alanine Aminotransferase 38 IU/L (<35); Albumin 4.2 g/dL (3.5-5.0); Albumin Globulin Ratio 1.4 (1.0-2.8); Alkaline Phosphatase 78 U/L (38-126); Aspartate Aminotransferase 36 IU/L (14-36); BUN Creatinine Ratio 34.2 (6-22); Bilirubin Total 0.6 mg/dL (0.2-1.3); Blood Urea Nitrogen 27 mg/dL (7-17); Calcium 8.9 mg/dL (8.4-10.2); Carbon Dioxide 28 mmol/L (22-32); Chloride 101 mmol/L (98-107); Estimated Glomerular Filt Rate > 60 mL/min (>60); Glucose 107 mg/dL (70-100); HEMOLYSIS < 15 (0-50); Potassium 3.9 mmol/L (3.4-5.1); Sodium 135 mmol/L (137-145); Total Protein 7.2 g/dL (6.3-8.2)
[2023-02-08 04:54] LABS: Procalcitonin 0.05 ng/mL (<0.5)
[2023-02-08 05:49] VITALS: BP 137/84; PULSE 73; RESP 15; TEMP 36.5; O2SAT 100
[2023-02-08 05:50] VITALS: PULSE 71; O2SAT 100
[2023-02-08 05:52] VITALS: BMI 25.4
--- NOTE | 2023-02-08 07:11 | P.HP_ITS ---
History of Present Illness History of Present Illness Date Patient Seen: 02/08/23 Time Patient Seen: 07:12 Chief complaint: was bit by cat yesterday and getting worse Narrative: This is a 57-year-old female who presents today for evaluation of left hand ring finger cap by which occurred on 02/07/2023. She went to walk-in clinic and received Augmentin. Despite taking 2 doses erythema progressed in her finger. She also has a small amount of swelling. She denies any fevers. No pain proximal to the MCP. Denies any distal numbness or tingling. Denies any recent nausea, vomiting diarrhea, fevers, chills or any other constitutional symptoms. No other complaints at this time. [facility] Medical History Foot pain (~2011) Hypertension (~1992) Osteoarthritis of toe joint Perimenopause (12/31/15) Vaginal delivery Family History Father Age: 81 Hypertension Grandmother Heart disease Grandfather Heart disease Grandmother Monique Gehrig's disease Social History marital status: household members: spouse Smoking Status: Never smoker alcohol intake: current substance use type: does not use Meds Home Medications and Allergies Home Medications Medication Instructions Recorded Confirmed Type cetirizine 10 mg tablet (Aller-Frankie) 10 mg PO DAILY 06/20/18 02/08/23 History telmisartan 40 See Rx Instructions .Route 01/05/23 02/08/23 Rx mg-hydrochlorothiazide 12.5 mg .COMPLEX #90 tabs tablet amoxicillin 875 mg-potassium 1 tab PO BID #20 tabs 02/07/23 02/08/23 Rx clavulanate 125 mg tablet Allergies Allergy/AdvReac Type Severity Reaction Status Date / Time No Known Drug Allergies Allergy Verified 02/07/23 10:24 Review of Systems Review of Systems ROS: Yes All systems reviewed with the patient and are negative except as otherwise documented Exam Vital Signs (past 8 hours): - 02/08/23 02:34 02/08/23 05:49 02/08/23 05:49 Temperature 97.6 F 97.7 F Pulse Rate 72 73 Respiratory Rate 16 15 Blood Pressure 146/81 H 137/84 Pulse Oximetry 99 100 Oxygen Delivery Method Room Air 02/08/23 05:50 Temperature Pulse Rate 71 Respiratory Rate Blood Pressure Pulse Oximetry 100 Oxygen Delivery Method Oxygen Delivery Method Room Air Narrative Exam Narrative: HEENT: Head atraumatic eyes anicteric moist mucous membranes Cardiovascular: Palpable peripheral pulses extremities are warm and well perfused Respiratory: Breathing comfortably on room air Psychiatric: Appropriate mood and affect Neuro: No acute deficits Musculoskeletal: Exam of left hand demonstrates erythema throughout the left finger however it is not significantly swollen compared to her other fingers. She is able to extend the finger completely. Only a minor amount of pain to palpation along the volar surface of the finger. No pain to palpation even deep palpation volarly at the MCP or proximal. Certainly no pain palpation over the carpal tunnel. No pain with full extension of the finger. She does have a small amount of pain when flexing. Small amount of purulence superficially noted at 1 of the puncture sites. There are a total of 4 puncture sites 2 of them are volarly and 2 of them are ulnar. Sensation intact on the radial and ulnar side of the finger. Brisk capillary refill at the fingertip less than 2 seconds. Objective Labs 02/08/23 04:10 02/08/23 04:10 Labs: Laboratory Results - last 24 hr 02/08/23 02/08/23 02/08/23 04:10 04:10 04:10 WBC 7.2 RBC 4.06 Hgb 13.0 Hct 38.4 MCV 94.6 MCH 32.1 MCHC 33.9 RDW 13.2 Plt Count 239 Neut % (Auto) 65.1 Lymph % (Auto) 24.0 L [place] % (Auto) 8.2 Eos % (Auto) 2.0 Baso % (Auto) 0.7 Neut # (Auto) 4700 Lymph # (Auto) 1700 [place] # (Auto) 600 Eos # (Auto) 100 Baso # (Auto) 0 Sodium 135 L Potassium 3.9 Chloride 101 Carbon Dioxide 28 BUN 27 H Creatinine 0.79 Estimated GFR > 60 BUN/Creatinine Ratio 34.2 H Glucose 107 H Lactate 0.7 Calcium 8.9 Total Bilirubin 0.6 AST 36 ALT 38 H Alkaline Phosphatase 78 Total Protein 7.2 Albumin 4.2 Globulin 3.0 Albumin/Globulin Ratio 1.4 Procalcitonin 0.05 Assessment & Plan Assessment & Plan narrative: Assessment: 57-year-old female with cat bite and resulting superficial cellulitis Plan: Exam discussed with the patient. The concern for flexor tenosynovitis was also discussed and we went over the diagnostic criteria. Patient received 1 dose of Unasyn in the emergency department around 5:00 a.m.. We will continue for 2 more doses (space 6 hours apart), if she is having any benefit and the erythema is not spreading we will transition her to oral clindamycin to be taken for 2 weeks. I will see her on Wednesday to check on her finger and see how she is doing.
--- NOTE | 2023-02-08 07:28 | PM.HP.1 ---
History of Present Illness History of Present Illness Date Patient Seen: 02/08/23 Time Patient Seen: 07:28 Chief complaint: car bite Narrative: 57-year-old female with a history of hypertension admitted the hospital with cellulitis. Patient was at home in her usual state of health patient was petting her cat who was asleep. The CTat was startled and bit her 4th digit on her left hand. she says it was a deep bite to the digit. And the puncture wounds were significant. She cleaned it as best as she could. She knew that cat bites typically got infected and patient went to the walk-in clinic. Patient was started on Augmentin in the walk-in clinic. Patient took 2 oral doses of Augmentin. Patient woke up in the middle of the night last night. Her 4th digit was increasingly painful and swollen and red and warm. She said the redness went down into her hand. She can extend her finger without difficulty. Patient is having difficult time with flexing due to swelling and redness. In the emergency department patient had laboratory testing done white blood cell count was 7.2 of note her sodium is 135 or procalcitonin is 0.05. No imaging was done. Her blood pressure was slightly elevated in the emergency department and orthopedic surgery was consulted. On my exam patient is complaining of minimal pain. Some increased warmth and swelling to the digit down into the palm of her hand. No fevers or chills no elbow pain. No chest pain shortness of breath dizziness or lightheadedness. Patient is sitting comfortably in the exam room. And has questions on next steps. Orthopedic surgery has been in to see and evaluate the patient. On review of emergency room records patient has been given 2 doses of Unasyn. COUNT INCLUDES THE [facility] Medical History Foot pain (~2011) Hypertension (~1992) Osteoarthritis of toe joint Perimenopause (12/31/15) Vaginal delivery Family History Father Age: 81 Hypertension Grandmother Heart disease Grandfather Heart disease Grandmother Monique Gehrig's disease Social History marital status: household members: spouse Smoking Status: Never smoker alcohol intake: current substance use type: does not use Meds Home Medications and Allergies Home Medications Medication Instructions Recorded Confirmed Type cetirizine 10 mg tablet (Aller-Frankie) 10 mg PO DAILY 06/20/18 02/08/23 History telmisartan 40 See Rx Instructions .Route 01/05/23 02/08/23 Rx mg-hydrochlorothiazide 12.5 mg .COMPLEX #90 tabs tablet amoxicillin 875 mg-potassium 1 tab PO BID #20 tabs 02/07/23 02/08/23 Rx clavulanate 125 mg tablet Allergies Allergy/AdvReac Type Severity Reaction Status Date / Time No Known Drug Allergies Allergy Verified 02/07/23 10:24 Exam Vital Signs (past 8 hours): - 02/08/23 02:34 02/08/23 05:49 02/08/23 05:49 Temperature 97.6 F 97.7 F Pulse Rate 72 73 Respiratory Rate 16 15 Blood Pressure 146/81 H 137/84 Pulse Oximetry 99 100 Oxygen Delivery Method Room Air 02/08/23 05:50 Temperature Pulse Rate 71 Respiratory Rate Blood Pressure Pulse Oximetry 100 Oxygen Delivery Method Oxygen Delivery Method Room Air Narrative Exam Narrative: Gen.: Patient is alert good historian HEENT: pupils equal round and reactive or mucosa is moist Cardio: S1-S2 regular rate and rhythm no systolic murmurs Respiratory: lungs are clear to auscultation no wheezes or crackles normal respiratory effort Extremities: erythema and swelling to the 4th digit. More anterior than posterior. Rule out redness up into the hand a little bit. Patient has no problems with extension. Some mild discomfort when flexing the 4th digit. Neurologic: Sensation is intact no cranial nerve deficits Objective Labs 02/08/23 04:10 02/08/23 04:10 Labs: Laboratory Results - last 24 hr 02/08/23 02/08/23 02/08/23 04:10 04:10 04:10 WBC 7.2 RBC 4.06 Hgb 13.0 Hct 38.4 MCV 94.6 MCH 32.1 MCHC 33.9 RDW 13.2 Plt Count 239 Neut % (Auto) 65.1 Lymph % (Auto) 24.0 L [place] % (Auto) 8.2 Eos % (Auto) 2.0 Baso % (Auto) 0.7 Neut # (Auto) 4700 Lymph # (Auto) 1700 [place] # (Auto) 600 Eos # (Auto) 100 Baso # (Auto) 0 Sodium 135 L Potassium 3.9 Chloride 101 Carbon Dioxide 28 BUN 27 H Creatinine 0.79 Estimated GFR > 60 BUN/Creatinine Ratio 34.2 H Glucose 107 H Lactate 0.7 Calcium 8.9 Total Bilirubin 0.6 AST 36 ALT 38 H Alkaline Phosphatase 78 Total Protein 7.2 Albumin 4.2 Globulin 3.0 Albumin/Globulin Ratio 1.4 Procalcitonin 0.05 Assessment & Plan Assessment and plan (1) Cellulitis: Status: Acute Plan Cellulitis- patient with a cat bite to her 4th digit of her left hand. patient received 2 doses of outpatient oral antibiotics appropriately despite this patient had rapid progression of infection over finger. Patient does have cellulitis requiring IV antibiotics as she is failed outpatient oral antibiotics there was also concern with the location in the depth of the cat bite that there may be flexor tendon involvement. Orthopedic surgery was consulted and evaluated the patient. Discussed with patient potential surgical options at this point he felt comfortable with nonoperative treatment and continuation of IV antibiotics. patient has no systemic symptoms of sepsis with normal white blood cell count normal procalcitonin normal blood pressure. patient will be given and continued on IV Unasyn 3 g q.6 hours. She may need at least 24 hours of IV antibiotics before she can be converted back to oral antibiotics. We will follow clinically for deterioration or concerns about abscess or tendon involvement. Hypertension. Patient has a history of hypertension. Blood pressure is moderately well controlled at this point. We will restart patient's home blood pressure medication. DVT prophylaxis. Patient will be started on Lovenox after 24 hours of admission. Code status full code. Disposition and plan 24 hours of IV antibiotics at least
--- NOTE | 2023-02-08 11:45 | CM.DANOTE ---
DCP assessment note Patient is a 57yo female here under inpatient status after getting cellulitis on her hand from a cat bite. PCP Kennedy Rosa and [facility] health plan LEAN MANUFACTURING COORDINATOR reviewed EMR. Per note, patient failed oral outpatient antibiotics. Patient is currently receiving IV antibiotics. LEAN MANUFACTURING COORDINATOR entered room and introduced self and role. Patient was sitting up in bed and was pleasant and chatty, appearing A/Ox4. Patient is active and independent at baseline. Patient drives. Patient lives at home with spouse Carl ([phone]). Patient reports she is hopeful to d/c this evening after finishing her last dose of antibiotics and will drive self home. Plan: patient will d/c home when medically stable with family. Likely no needs from this team. CM team will continue to follow as needed. DIANA Todd Discharge Planning/Care Management CM Discharge Assessment Start: 02/08/23 11:43 Freq: Status: Active Protocol: Document 02/08/23 11:43 (Rec: 02/08/23 11:44 [id number]) Discharge Planning Assessment Assigned Residential Substance Abuse Counselor DIANA Mirza DPOA/Assigned Designee Name Carl (spouse) Contact Information ([phone]) Advance Directives? No History Provided By Patient,Medical Record Prior Living Arrangements House Household Members spouse Type of transporation used prior to Drives own vehicle admit Independent with ADL's Yes Is patient alert and oriented? Yes Discharge Plan Home Transportation Arrangement drive self Whiteboard Updated in Patient Room with Yes name and ext. # of Residential Substance Abuse Counselor Review Status In Process Next Review Type Continued Stay Review
[2023-02-08 15:05] VITALS: BP 121/77; PULSE 75; RESP 15; TEMP 36.7; O2SAT 99
--- NOTE | 2023-02-08 19:19 | PC.NURSE ---
Day shift: Pt A&Ox4, awake and sitting up in bed. Pt denies pain, declines pain medication for finger. Pt up in room ind, in halls ind, steady on feet without any msk issues at this time. VSS. Bed locked. Call light and personal belongings in reach. Care ongoing. Will continue to monitor.
[2023-02-08 21:00] VITALS: BP 126/82; PULSE 62; RESP 17; TEMP 36.8; O2SAT 100
[2023-02-08] MEDS: SODIUM CHLORIDE 0.9% FLUSH 10 ML IV (22:52)
[2023-02-09 00:13] LABS: MRSA (Nasal) PCR Not Detected (Not Detect)
[2023-02-09] MEDS: AMPICILLIN/SULBACTAM 3 GM 3 GM in SODIUM CHLORIDE 0.9% 100 ML IV ×2 (04:49→10:46)
[2023-02-09 05:00] VITALS: BP 112/75; PULSE 55; RESP 16; TEMP 36.7; O2SAT 96
--- NOTE | 2023-02-09 07:44 | P.DS_ITS ---
History of Present Illness History of Present Illness Chief complaint: car bite Narrative: 57-year-old female with a history of hypertension admitted the hospital with cellulitis. Patient was at home in her usual state of health patient was petting her cat who was asleep. The CTat was startled and bit her 4th digit on her left hand. she says it was a deep bite to the digit. And the puncture wounds were significant. She cleaned it as best as she could. She knew that cat bites typically got infected and patient went to the walk-in clinic. Patient was started on Augmentin in the walk-in clinic. Patient took 2 oral doses of Augmentin. Patient woke up in the middle of the night last night. Her 4th digit was increasingly painful and swollen and red and warm. She said the redness went down into her hand. She can extend her finger without difficulty. Patient is having difficult time with flexing due to swelling and redness. In the emergency department patient had laboratory testing done white blood cell count was 7.2 of note her sodium is 135 or procalcitonin is 0.05. No imaging was done. Her blood pressure was slightly elevated in the emergency department and orthopedic surgery was consulted. On my exam patient is complaining of minimal pain. Some increased warmth and swelling to the digit down into the palm of her hand. No fevers or chills no elbow pain. No chest pain shortness of breath dizziness or lightheadedness. Patient is sitting comfortably in the exam room. And has questions on next steps. Orthopedic surgery has been in to see and evaluate the patient. On r eview of emergency room records patient has been given 2 doses of Unasyn. Discharge Providers Provider Date of admission: 02/08/23 05:23 Discharge Date: 02/09/23 Primary care physician: Kennedy Hair MD Discharge provider: Kennedy Hair MD Summary Hospital Course Discharge Diagnosis: Cellulitis of hand and finger Cat bite Hypertension Hospital Course: 57-year-old female who was admitted to the hospital after failed outpatient oral antibiotics for a cat bite. Despite appropriate outpatient oral antibiotics patient had significant progression of skin infection cellulitis and concern for flexor tenosynovitis due to infection. Patient had an orthopedic evaluation. Patient was admitted to the hospital with q.6 hours 3 g Unasyn. Over the ensuing 36 hours patient received 6 doses of IV antibiotics. Patient had improv ement of her hand infection decreased redness decreased heat decreased swelling. There was no localized abscess formation. She had improvement of pain. Patient had improved flexion and extension and there was no progression. Exam Vital Signs (past 8 hours): - 02/09/23 05:00 Temperature 98.1 F Pulse Rate 55 L Respiratory Rate 16 Blood Pressure 112/75 Pulse Oximetry 96 Oxygen Delivery Method Room Air Oxygen Flow Rate 0 Narrative Exam Narrative: Gen.: Alert no apparent distress HEENT: Pupils equal round and reactive Cardio: Regular rate and rhythm Respiratory: Normal respiratory effort Abdomen: Soft nontender Extremities: Full range of motion Objective Labs 02/08/23 04:10 02/08/23 04:10 Labs: Laboratory Results - last 24 hr 02/08/23 22:55 Nasal Screen MRSA (PCR) Not detected [facility] Medical History Foot pain (~2011) Hypertension (~1992) Osteoarthritis of toe joint Perimenopause (12/31/15) Vaginal delivery Family History Father Age: 81 Hypertension Grandmother Heart disease Grandfather Heart disease Grandmother Monique Gehrig's disease Social History marital status: household members: spouse Smoking Status: Never smoker alcohol intake: current substance use type: does not use Discharge Plan Discharge Plan Patient Disposition: Home Provider Discharge Comment: Return if significant increase in pain redness swelling or loss of range of motion Discharge orders & Medications Prescriptions: New clindamycin HCl 300 mg capsule 300 mg PO Q6H Qty: 28 0RF fluconazole [Diflucan] 150 mg tablet 150 mg PO DAILY Qty: 2 0RF Continued amoxicillin-pot clavulanate 875-125 mg tablet 1 tab PO BID Qty: 20 0RF telmisartan-hydrochlorothiazid 40-12.5 mg tablet See Rx Instructions .ROUTE .COMPLEX Qty: 90 0RF Dose Instruction: take 1 tablet by mouth once daily Rx Instructions: take 1 tablet by mouth once daily cetirizine [Aller-Frankie] 10 mg tablet 10 mg PO DAILY Follow up/Referrals: Kennedy Hair MD [Primary Care Provider] - Visit Report/Discharge Packet Stand Alone Forms: Patient Portal/API, Stroke Signs & Symptoms Discharge Data Primary Care Provider: Kennedy Hair
[2023-02-09 08:25] VITALS: BP 121/76; PULSE 60; RESP 16; TEMP 36.4; O2SAT 98
[2023-02-09] MEDS: SODIUM CHLORIDE 0.9% FLUSH 10 ML IV (08:30)
--- NOTE | 2023-02-09 11:29 | CM.DPC ---
DCP Continued: RD LAB TECHNICIAN entered room and reintroduced self and role. Patient reported she still has no needs and is excited to d/c home today and is feeling much better. Plan: patient will d/c home today to family, transport in POV. Cm team will continue to follow as needed. DIANA Todd
== END 2023-02-09 11:30 | disposition home or self-care (01) | DRG 603 ==
LOC: ED 05:22 → AC 05:26 → ICU 07:04 → AC 11:53
PROVIDERS: Admitting Provider Orthopaedic Surgery; Emergency Provider Emergency Medicine; PCP Family Medicine; Referring Provider Emergency Medicine; Visit Provider Orthopaedic Surgery
DX: L03.012 Cellulitis of left finger (principal); M65.842 Other synovitis and tenosynovitis, left hand; I10 Essential (primary) hypertension
CPT/HCPCS: 36415; 73140; 80053; 83605; 84145; 85025; 87040; 87797; 96365; 99223; 99238; 99284; J0295

== ENCOUNTER → 2023-04-23 09:30 | Outpatient (CLI) | payer OTHER, SELFPAY ==
[2023-04-23 11:31] LABS: Adenovirus F 40/41 Not Detected (Not Detect); Astrovirus Not Detected (Not Detect); Campylobacter Not Detected (Not Detect); Clostridium difficile toxin AB Not Detected (Not Detect); Cryptosporidium Not Detected (Not Detect); Cyclospora cayetanensis Not Detected (Not Detect); Entamoeba histolytica Not Detected (Not Detect); Enteroaggregative E.coli Not Detected (Not Detect); Enterotoxigenic E.coli It/st Not Detected (Not Detect); Giardia lamblia Not Detected (Not Detect); Norovirus GI/GII Not Detected (Not Detect); Plesiomonsa shigelloides Not Detected (Not Detect); Rotavirus A Not Detected (Not Detect); Salmonella Not Detected (Not Detect); Sapovirus Not Detected (Not Detect); Shiga-like toxin-prod E.coli Detected (Not Detect); Shigella/Enteroinvasive E.coli Not Detected (Not Detect); Vibrio Not Detected (Not Detect); Vibrio cholerae Not Detected (Not Detect); Yersinia enterocolitica Not Detected (Not Detect)
== END ==
PROVIDERS: PCP Family Medicine; Referring Provider Family Medicine; Visit Provider Family Medicine
DX: R19.7 Diarrhea, unspecified (principal); R10.9 Unspecified abdominal pain; R11.0 Nausea
CPT/HCPCS: 87177; 87507

== ENCOUNTER → 2023-04-24 11:35 | Outpatient (CLI) | payer OTHER, SELFPAY ==
[2023-04-24 12:34] LABS: Appearance Urine UA CLEAR; Bilirubin Urine UA NEGATIVE (NEGATIVE); Color Urine UA YELLOW; Glucose Urine UA NEGATIVE (Negative); Leukocyte Esterase Urine UA NEGATIVE (NEGATIVE); Nitrite Urine UA NEGATIVE (Negative); Urobilinogen Urine UA 0.2 E.U./dL (0.2)
[2023-04-24 13:11] LABS: Add Manual Diff / Slide Review NO; Basophils Absolute Auto 0 /uL (0-100); Basophils Percent Auto 0.4 % (0-2); Eosinophils Absolute Auto 100 /uL (0-450); Eosinophils Percent Auto 0.7 % (2-4); Hematocrit 39.6 % (36-46); Hemoglobin 13.7 g/dL (12.0-16.0); Lymphocytes Absolute Auto 1900 /uL (1100-4500); Lymphocytes Percent Auto 19.6 % (25-40); Mean Corpuscular HGB Conc 34.7 % (30-36); Mean Corpuscular Hemoglobin 32.5 PG (26-34); Mean Corpuscular Volume 93.7 fL (80-100); Monocytes Absolute Auto 900 /uL (0-900); Monocytes Percent Auto 9.2 % (3-14); Neutrophils Absolute Auto 6700 /uL (1500-7000); Neutrophils Percent Auto 70.1 % (50-75); Platelet Count 278 X10^3/uL (150-400); Red Blood Cell Count 4.22 X10^6/uL (4.0-5.2); Red Cell Distribution Width 12.9 % (11.6-14.8); White Blood Cell Count 9.5 X10^3/uL (4.5-11.0)
[2023-04-24 13:12] LABS: Ketones Urine UA 1+ (NEGATIVE); Occult Blood Urine UA NEGATIVE (Negative); Protein Urine UA NEGATIVE (Negative); Specific Gravity Urine UA <=1.005 (1.000-1.035); pH Urine UA 6.5 (4.5-8.0)
[2023-04-24 13:21] LABS: Bacteria Urine None Seen; Culture Indicated Urine Cult Not Indicated; RBC Urine None Seen (0-5/HPF); Squamous Epithelial Cell Urine None Seen (0-5/HPF); WBC Urine None Seen (0-5/HPF)
[2023-04-24 14:22] LABS: Alanine Aminotransferase 19 IU/L (<35); Albumin 3.8 g/dL (3.5-5.0); Albumin Globulin Ratio 1.4 (1.0-2.8); Alkaline Phosphatase 68 U/L (38-126); Aspartate Aminotransferase 20 IU/L (14-36); Bilirubin Total 0.8 mg/dL (0.2-1.3); Blood Urea Nitrogen 12 mg/dL (7-17); Calcium 9.1 mg/dL (8.4-10.2); Carbon Dioxide 22 mmol/L (22-32); Chloride 95 mmol/L (98-107); Estimated Glomerular Filt Rate > 60 mL/min (>60); Globulin 2.7 g/dL (1.7-4.1); Glucose 90 mg/dL (70-100); HEMOLYSIS < 15 (0-50); Sodium 129 mmol/L (137-145); Total Protein 6.5 g/dL (6.3-8.2)
== END ==
PROVIDERS: PCP Family Medicine; Referring Provider Family Medicine; Visit Provider Family Medicine
DX: R19.7 Diarrhea, unspecified (principal)
CPT/HCPCS: 36415; 80053; 81001; 85025

== ENCOUNTER → 2023-04-27 | Outpatient (CLI) | payer OTHER, SELFPAY | PROVIDERS: PCP Family Medicine; Referring Provider Family Medicine; Visit Provider Family Medicine | DX: Z23 Encounter for immunization (principal) | CPT/HCPCS: 90471; 90686 ==

== ENCOUNTER → 2023-06-30 15:21 | Outpatient (CLI) | payer OTHER, SELFPAY ==
--- NOTE | 2023-06-30 | DI.MG.S_ITS ---
BILATERAL DIGITAL SCREENING MAMMOGRAM 3D/2D WITH CAD: 06/30/2023 CLINICAL: Routine screening. Family history of breast cancer. Comparison is made to exams dated: 04/12/2021 mammogram, 05/05/2022 mammogram, and 02/26/2020 mammogram - [facility]. Both breasts are heterogeneously dense, which may obscure small masses (category c / 51-75% glandular tissue). Current study was also evaluated with a Computer Aided Detection (CAD) system. There is possible architectural distortion in the right breast posterior depth lateral region seen on the craniocaudal view only. No other significant masses, calcifications, or other findings are seen in either breast. IMPRESSION: INCOMPLETE: NEEDS ADDITIONAL IMAGING EVALUATION The possible architectural distortion in the right breast is indeterminate. Additional views with possible ultrasound are recommended. Based on the Tyrer Cuzick model (a risk assessment model) the patient's lifetime risk is 16.1% and her 10 year risk is 5.4%. According to the ACR, ACS, and NCCN guidelines, an annual breast MRI exam along with mammogram is recommended if the patient's lifetime risk is 20% or greater. This exam was interpreted at Station ID: [id number]. NOTE: For mammograms, a report in lay terms will be sent to the patient. Approximately 15% of breast malignancies will not be visualized mammographically. In the management of a palpable breast mass, a negative mammogram must not discourage biopsy of a clinically suspicious lesion. Electronically Signed By: Leonides Campoverde M.D. lc/:07/01/2023 08:23:41 letter sent: Additional Imaging Needed ACR BI-RADS Category 0: Incomplete [id number]
== END ==
PROVIDERS: PCP Family Medicine; Referring Provider Family Medicine; Visit Provider Family Medicine
DX: Z12.31 Encounter for screening mammogram for malignant neoplasm of breast (principal); Z80.3 Family history of malignant neoplasm of breast
CPT/HCPCS: 77063; 77067

== ENCOUNTER → 2023-07-15 10:20 | Outpatient (CLI) | payer OTHER, SELFPAY ==
--- NOTE | 2023-07-15 | DI.MG.S_ITS ---
UNILATERAL RIGHT DIGITAL DIAGNOSTIC MAMMOGRAM 3D/2D WITH ADDITIONAL VIEWS: 07/15/2023 CLINICAL: Additional evaluation requested from prior study. Comparison is made to exams dated: 06/30/2023 mammogram, 05/05/2022 mammogram, 04/12/2021 mammogram, 02/26/2020 mammogram, and 02/07/2019 mammogram - [facility]. The right breast is heterogeneously dense, which may obscure small masses (category c / 51-75% glandular tissue). The finding seen on recent screening mammogram did not persist with additional imaging and is consistent with superimposition of normal breast tissue. No significant masses, calcifications, or other findings are seen in the breast. IMPRESSION: NEGATIVE Superimposition of normal breast tissue. No mammographic evidence of malignancy. A 1 year screening mammogram is recommended. Findings and recommendations were conveyed to the patient during today's evaluation. Based on the Tyrer Cuzick model (a risk assessment model) the patient's lifetime risk is 16.1% and her 10 year risk is 5.4%. According to the ACR, ACS, and NCCN guidelines, an annual breast MRI exam along with mammogram is recommended if the patient's lifetime risk is 20% or greater. This exam was interpreted at Station ID: [id number]. NOTE: For mammograms, a report in lay terms will be sent to the patient. Approximately 15% of breast malignancies will not be visualized mammographically. In the management of a palpable breast mass, a negative mammogram must not discourage biopsy of a clinically suspicious lesion. Electronically Signed By: María Biggs M.D., PH.D eb/:07/15/2023 16:24:28 letter sent: Normal Exam ACR BI-RADS Category 1: Negative [id number]
== END ==
LOC: MAMMO 10:22
PROVIDERS: PCP Family Medicine; Referring Provider Family Medicine; Visit Provider Family Medicine
DX: R92.8 Other abnormal and inconclusive findings on diagnostic imaging of breast (principal)
CPT/HCPCS: 77065; G0279

== ENCOUNTER → 2024-04-28 | Outpatient (CLI) | payer OTHER, SELFPAY | PROVIDERS: PCP Family Medicine; Referring Provider Internal Medicine; Visit Provider Internal Medicine | DX: Z23 Encounter for immunization (principal) | CPT/HCPCS: 90471; 90656 ==

== ENCOUNTER → 2024-07-17 13:00 | Outpatient (CLI) | payer OTHER, SELFPAY ==
--- NOTE | 2024-07-17 | DI.MG.S_ITS ---
BILATERAL DIGITAL SCREENING MAMMOGRAM 3D/2D WITH CAD: 07/17/2024 CLINICAL: Routine screening. Family history of breast cancer. Comparison is made to exams dated: 06/30/2023 mammogram, 05/05/2022 mammogram, 04/12/2021 mammogram, 02/26/2020 mammogram, and 02/07/2019 mammogram - [facility]. The breasts are heterogeneously dense, which may obscure small masses (category c / 51-75% glandular tissue). Current study was also evaluated with a Computer Aided Detection (CAD) system. No significant masses, calcifications, or other findings are seen in either breast. There has been no significant interval change. IMPRESSION: NEGATIVE There is no mammographic evidence of malignancy. A 1 year screening mammogram is recommended. Based on the Tyrer Cuzick model (a risk assessment model) the patient's lifetime risk is 15.9% and her 10 year risk is 5.7%. According to the ACR, ACS, and NCCN guidelines, an annual breast MRI exam along with mammogram is recommended if the patient's lifetime risk is 20% or greater. This exam was interpreted at Station ID: [id number]. NOTE: For mammograms, a report in lay terms will be sent to the patient. Approximately 15% of breast malignancies will not be visualized mammographically. In the management of a palpable breast mass, a negative mammogram must not discourage biopsy of a clinically suspicious lesion. Electronically Signed By: María Biggs M.D., Ph.D. gianluca/bao:07/18/2024 09:27:28 letter sent: Normal Exam ACR BI-RADS Category 1: Negative
== END ==
PROVIDERS: PCP Family Medicine; Referring Provider Family Medicine; Visit Provider Family Medicine
DX: Z12.31 Encounter for screening mammogram for malignant neoplasm of breast (principal); Z80.3 Family history of malignant neoplasm of breast; R92.333 Mammographic heterogeneous density, bilateral breasts
CPT/HCPCS: 77063; 77067

== ENCOUNTER → 2024-10-17 07:46 | Outpatient (CLI) | payer OTHER, SELFPAY ==
[2024-10-17 08:00] LABS: Add Manual Diff / Slide Review NO; Basophils Absolute Auto 0 /uL (0-100); Basophils Percent Auto 1.1 % (0-2); Eosinophils Absolute Auto 100 /uL (0-450); Eosinophils Percent Auto 2.6 % (2-4); Hematocrit 38.8 % (36-46); Hemoglobin 12.9 g/dL (12.0-16.0); Lymphocytes Absolute Auto 1500 /uL (1100-4500); Lymphocytes Percent Auto 33.7 % (25-40); Mean Corpuscular HGB Conc 33.2 % (30-36); Mean Corpuscular Hemoglobin 31.5 PG (26-34); Mean Corpuscular Volume 94.8 fL (80-100); Monocytes Absolute Auto 500 /uL (0-900); Monocytes Percent Auto 10.2 % (3-14); Neutrophils Absolute Auto 2300 /uL (1500-7000); Neutrophils Percent Auto 52.4 % (50-75); Platelet Count 246 X10^3/uL (150-400); Red Blood Cell Count 4.09 X10^6/uL (4.0-5.2); White Blood Cell Count 4.5 X10^3/uL (4.5-11.0)
[2024-10-17 08:24] LABS: Alanine Aminotransferase 29 IU/L (<35); Albumin 4.5 g/dL (3.5-5.0); Albumin Globulin Ratio 1.8 (1.0-2.8); Alkaline Phosphatase 63 U/L (38-126); Aspartate Aminotransferase 30 IU/L (14-36); BUN Creatinine Ratio 19.8 (6-22); Bilirubin Total 0.8 mg/dL (0.2-1.3); Blood Urea Nitrogen 17 mg/dL (7-17); Calcium 9.7 mg/dL (8.4-10.2); Carbon Dioxide 28 mmol/L (22-32); Chloride 101 mmol/L (98-107); Cholesterol 256 mg/dL (140-199); Estimated Glomerular Filt Rate > 60 mL/min (>60); Globulin 2.5 g/dL (1.7-4.1); Glucose 104 mg/dL (70-100); HDL Cholesterol 73 mg/dL (40-60); HEMOLYSIS < 15 (0-50); LDL Cholesterol Calculated 170 mg/dL (<100); Potassium 4.2 mmol/L (3.4-5.1); Sodium 137 mmol/L (137-145); Triglycerides 64 mg/dL (35-150)
[2024-10-17 08:47] LABS: TSH w/ Reflex to FT4 2.04 uIU/mL (0.47-4.68)
== END ==
PROVIDERS: PCP Family Medicine; Referring Provider Family Medicine; Visit Provider Family Medicine
DX: I10 Essential (primary) hypertension (principal)
CPT/HCPCS: 36415; 80053; 80061; 84443; 85025